=== PATIENT | male | born 1965 ===

== ENCOUNTER 2017-06-16 07:25 | Day surgery (SDC) | payer OTHER ==
[~2017-06-16 07:25] MED LIST: NAPROXEN375 MG PO
[2017-06-16] MEDS ORDERED: TUMS500 MG PO (08:47)
[2017-06-16] MEDS ORDERED: VITAMIN B-12500 MCG PO (08:47)
[2017-06-16 13:28] VITALS: BP 125/79
== END 2017-06-16 14:35 | disposition other institution (70) | DRG 352 ==
LOC: ORM 07:25
PROVIDERS: ATTEND Surgery
PROC: 0YU60JZ Supplement Left Inguinal Region with Synthetic Substitute, Open Approach (ICD-10-PCS; principal; 2017-06-16)
DX: K40.90 Unilateral inguinal hernia, without obstruction or gangrene, not specified as recurrent (principal)
CPT/HCPCS: C9290